=== PATIENT | male | born 1950 | race Hispanic/Latino ===

== ENCOUNTER 2016-12-16 09:31 | Day surgery (SDC) | payer MEDICARE ==
[2016-12-16 09:59] VITALS: BMI 25.4
[2016-12-16] MEDS ORDERED: Propofol 10 mg/ml Inj (20 ML) ONE (11:19)
[2016-12-16] MEDS ORDERED: Midazolam 2 MG/2 ML VIAL ONE (11:20)
[2016-12-16] MEDS ORDERED: Sodium Chloride 0.9% 1,000 ML IV SCH (12:30)
[2016-12-16 12:50] VITALS: O2SAT 98
[2016-12-16 13:06] VITALS: BP 140/81; PULSE 72; RESP 19; TEMP 98.5
== END 2016-12-16 13:38 | disposition home or self-care (01) ==
LOC: EDSEX 09:31 → ENDO 09:31
PROVIDERS: ATTEND Internal Medicine Gastroenterology
DX: D12.4 Benign neoplasm of descending colon (principal); D12.5 Benign neoplasm of sigmoid colon; K57.30 Diverticulosis of large intestine without perforation or abscess without bleeding; K64.8 Other hemorrhoids; F17.210 Nicotine dependence, cigarettes, uncomplicated; Z88.0 Allergy status to penicillin; Z12.11 Encounter for screening for malignant neoplasm of colon
CPT/HCPCS: 45385; 88305; J2250; J2704; J7040